=== PATIENT | female | born 1990 | race Caucasian/White ===

== ENCOUNTER 2023-11-25 19:43 | Emergency (ER) | payer OTHER, SELFPAY ==
[2023-11-25 19:48] VITALS: BP 172/122
--- NOTE | 2023-11-25 20:58 | ED.GENMED ---
History of Present Illness
<Keith Josue PA-C - Last Filed: 11/29/23 07:10>
General
Chief Complaint: Headache
Source: patient and significant other
Time Seen by Provider: 11/25/23 20:48
Travel History
Have you had any contact with someone who has COVID-19?: No
Do you have any symptoms of coronavirus? Fever > 100 degrees, chills, cough, shortness of breath, sore throat, loss of taste or smell, muscle aches, or headache?: No
History of Present Illness
History of Present Illness:
33-year-old female presenting to the emergency department for evaluation after she states that she believes she had a panic attack/questionable seizure this past Saturday show will bleed, fell to the ground and then upon awakening felt short of
breath and unwell. She states since that episode she has had paresthesia to her bilateral upper extremities, neck discomfort, left shoulder pain and states she just feels unlike herself. Patient was concern for possible seizure versus TIA versus
panic attack. She notes that she does have a history of anxiety and panic attacks that have been increasing ever since a family member's a few months ago. Patient states she is also concerned as her mother has a history of TIA around similar
age. Patient is otherwise denying any focal weakness or numbness, chest pain, shortness of breath, palpitations or any other concerns. Social history was noncontributory. Surgical history was significant for recent bariatric surgery with an
approximate 100 pound weight loss in the last few months.
Past History
<Keith Josue PA-C - Last Filed: 11/29/23 07:10>
Past History
ED Past Medical History: Asthma, GERD, Psychiatric (Depression/Anxiety) and Other (UTI, ADHD, IBS, Ulcers)
ED Past Surgical History: Tonsilectomy and Other (Bariatric surgery, sinus surgery)
Social History
Tobacco: Non-smoker
Alcohol: None
Drug: None
Personal: Single
Living: with roommate
Review of Systems
<Keith Josue PA-C - Last Filed: 11/29/23 07:10>
Review of Systems
All Other Systems: ROS reviewed and negative except as documented in HPI and ROS
Phy Exam
<Keith Josue PA-C - Last Filed: 11/29/23 07:10>
Physical Exam
Physical Exam:
GENERAL: Alert , Initially calm and cooperative, however during the history portion of the exam patient started to get very tearful and anxious and stated she no longer wanted to be here and wished to leave
Vital signs: Repeated patient's blood pressure and was 141/111
EYE: conjunctiva clear
Head: Normocephalic atraumatic
NECK: Supple,
ENT: mmm.
LUNGS: no acute respiratory distress
NEUROLOGICAL: Alert and oriented
SKIN: Warm and dry, skin intact.
MUSCULOSKELETAL: well perfused.
PSYCH: Normal and appropriate interaction However he did have a very anxious affect
Scores
<Keith Josue PA-C - Last Filed: 11/29/23 07:10>
Heart Failure Risk
Heart Failure Risk Score: Not Applicable
Heart Score for Chest Pain Patients
STEMI patient?: Not applicable
Withdrawal Assessment of Alcohol
Withdrawal Assessment Completed?: Not applicable
Course
<eKith Josue PA-C - Last Filed: 11/29/23 07:10>
Orders/Labs/Results
Orders:
Orders
11/25/23 21:15
CT Head W/o Iv Contrast Urgent
Comment:
Reason For Exam: elevated blood pressure, headache
11/25/23 21:26
Electrocardiogram (*1) Stat
Reason for Study: Other
Other Reason for Exam: neuro symptoms
EKG- Treatment ONCE
IV Insert/Care/Rem.- Treatment PRN
Test Result ONCE
Pulse Ox/cont/shift [RESP] Stat
Quantity: 1
11/25/23 21:27
CT Cervical Spine W/o Iv Contr Urgent
Comment:
Reason For Exam: Left-sided neck pain
Cardiac Monitoring- Treatment ONCE
11/25/23 21:33
Basic Metabolic Panel Urgent
HCG, Serum Qualitative Screen Urgent
TSH Reflex To Free T4 Urgent
11/25/23 21:34
Complete Blood Count/With Diff Urgent
Abnormal Lab Results
11/25/23 11/25/23
21:33 21:34
WBC 11.6 H 10^3/uL
(4.8-10.8)
Absolute Lymphs (auto) 5.2 H 10^3/uL
(1.2-3.4)
Absolute Monos (auto) 0.8 H 10^3/uL
(0.1-0.6)
Sodium 134 L mmol/L
(135-145)
11/25/23 21:34
11/25/23 21:33
Vital Signs
Initial and Last Documented VS:
Initial Vital Signs
Temp Pulse Resp BP Pulse Ox
98.2 F 90 16 172/122 100
11/25/23 19:48 11/25/23 19:48 11/25/23 19:48 11/25/23 19:48 11/25/23 19:48
Last Documented Vital Signs
Temp Pulse Resp BP Pulse Ox
98.2 F 79 12 114/91 98
11/25/23 19:48 11/26/23 00:25 11/26/23 00:25 11/26/23 00:24 11/26/23 00:25
<Ace Carias MD - Last Filed: 11/26/23 20:39>
Orders/Labs/Results
Orders:
Orders
11/25/23 21:15
CT Head W/o Iv Contrast Urgent
Comment:
Reason For Exam: elevated blood pressure, headache
11/25/23 21:26
Electrocardiogram (*1) Stat
Reason for Study: Other
Other Reason for Exam: neuro symptoms
EKG- Treatment ONCE
IV Insert/Care/Rem.- Treatment PRN
Test Result ONCE
Pulse Ox/cont/shift [RESP] Stat
Quantity: 1
11/25/23 21:27
CT Cervical Spine W/o Iv Contr Urgent
Comment:
Reason For Exam: Left-sided neck pain
Cardiac Monitoring- Treatment ONCE
11/25/23 21:33
Basic Metabolic Panel Urgent
HCG, Serum Qualitative Screen Urgent
TSH Reflex To Free T4 Urgent
11/25/23 21:34
Complete Blood Count/With Diff Urgent
Abnormal Lab Results
11/25/23 11/25/23
21:33 21:34
WBC 11.6 H 10^3/uL
(4.8-10.8)
Absolute Lymphs (auto) 5.2 H 10^3/uL
(1.2-3.4)
Absolute Monos (auto) 0.8 H 10^3/uL
(0.1-0.6)
Sodium 134 L mmol/L
(135-145)
11/25/23 21:34
11/25/23 21:33
Vital Signs
Initial and Last Documented VS:
Initial Vital Signs
Temp Pulse Resp BP Pulse Ox
98.2 F 90 16 172/122 100
11/25/23 19:48 11/25/23 19:48 11/25/23 19:48 11/25/23 19:48 11/25/23 19:48
Last Documented Vital Signs
Temp Pulse Resp BP Pulse Ox
98.2 F 79 12 114/91 98
11/25/23 19:48 11/26/23 00:25 11/26/23 00:25 11/26/23 00:24 11/26/23 00:25
<Keith Josue PA-C - Last Filed: 11/29/23 07:10>
MDM/Problems Addressed
Differential Diagnosis Includes:
Anxiety/panic disorder, hypertensive urgency/emergency, minimal concern for acute seizure/epilepsy, TIA
MDM/Problems Addressed:
33-year-old female presenting to the emergency department after she had a episode of shaking and reportedly was unresponsive for about a minute and a half, awoke but without any reported postictal phase and very anxious. She reports that she has
had these episodes more frequently over the last few months that she is attributing to increased anxiety with her job combined with a family member's recent passing. Patient ultimately stated she wished evaluated with imaging. Discussed with
patient the risk first benefit of CT imaging as well as with CT would ultimately show. I did discuss with patient that likely to show any acute a however if there were any chronic findings that this would potentially be seen with a CT. I discussed
with the patient that she may need an MRI which would be much more sensitive for CVA as well as if she is truly having seizure episodes she would likely need an EEG done as an outpatient. While discussing this with patient and prior to a full
physical exam patient got very upset tearful and stated she wished to leave the emergency department and did not want to be evaluated any further. I did offer the CT to the patient however is declining. I did veterans' counselor the patient follow-up with her
family doctor for a repeat blood pressure as hers was elevated twice in triage as well as during my exam. She is aware of return precautions to the ER but otherwise stable for discharge home.
<Keith Josue PA-C - Last Filed: 11/29/23 07:10>
*Pulse Oximetry
Patient hypoxic: no
*Critical Care Note
Total Time (30-74mins, 75-104mins- exclusive of procedures): Not Applicable
Data Reviewed
Further Testing Considered But Not Given:
CT of the head discussed with patient but patient ultimately declines.
<Ace Carias MD - Last Filed: 11/26/23 20:39>
*Radiology
Radiology exam reviewed: radiology read reviewed (Negative CTs)
*EKG
Comparison EKG: no comparison EKG present
Heart Rate: 88
Rate: normal
Rhythm: sinus
[place]: normal axis
Interval: normal interval
QRS Pattern: normal QRS
Ischemia: no ischemia
<Keith Josue PA-C - Last Filed: 11/29/23 07:10>
Comment
Comment:
prior to d/c, Dr. Carias evaluated patient and assumed care as patient requested to see a different provider
ED Attending Note
<Keith Josue PA-C - Last Filed: 11/29/23 07:10>
-
Portions of this chart may have been created with voice recognition software.� Occasional wrong word or��sound alike� substitutions may have occurred due to the inherent limitations of voice recognition software.
<Ace Carias MD - Last Filed: 11/26/23 20:39>
ED Attending Note
Patient seen and examined by attending physician: Yes
I performed the substantive portion of visit, reviewed & personally made and approve the management plan that is documented in note by myself or NEO.: Yes
ED Attending Note:
Patient was having a heated discussion with her significant other at home. She then had a questionable seizure-like activity. She states she started feeling shaky all over and went to the ground. She may have had a brief loss of consciousness.
She did not bite her tongue. She did not have incontinence. She states she feels emotionally labile which is unusual for her. She woke up and immediately wanted to use her inhaler. Currently complaining of feeling jittery shaky anxious. She may
have hit her head and has some left neck pain.
GENERAL: Alert and oriented in no apparent distress. Ambulated from the bathroom without difficulty
EYE: Orbits normal.
NECK: Supple, no thyroid palpable
ENT: Pharynx without erythema
CARDIAC: Regular rate and rhythm without any obvious murmurs.
LUNGS: Clear breath sounds,normal
ABDOMEN: Soft, without focal tenderness or distention. Elevated BMI
NEUROLOGICAL: Alert and oriented , grossly non-focal
SKIN: Warm and dry, no rash or lesion, no discoloration, skin intact.
MUSCULOSKELETAL: No edema,no deformity.Good color
PSYCH: Cooperative and pleasant but anxious and occasionally tearful
Impression: Doubt true seizure activity. Patient recalls feeling jittery had no postictal period. No tongue biting no incontinence. Blood pressure initially elevated but this was on the arm cuff. Manual pressure was reasonable. Exam is
unremarkable. Workup is stable. If CT scans are stable discharged to follow-up
2245... Patient doing well and appears well. Await CT scan.
Discharge Plan
Departure
Patient Disposition: Home (Routine Discharge)
Date of Disposition: 11/26/23
Time of Disposition: 00:17
Patient with high blood pressure during this ER visit?: Yes
Discharge Problem:
Elevated blood pressure reading, Headache, Neck pain
Instructions: BLOOD PRESSURE
Prescriptions:
No Action
alprazolam [Xanax] 0.5 MG tablet
0.5 mg PO TID PRN (Reason: ANXIETY) Qty: 7 0RF
Activity Restrictions/Additional Instructions:
Follow-up closely with your primary physician
Interventions
Interventions:
*Risk Screen - Suicide Last Done: 11/25/23 19:48
*General Assessment Last Done: 11/25/23 19:48
*Neglect/Abuse Screening Last Done: 11/25/23 19:48
ED- Fall Risk Assessment Last Done: 11/26/23 00:30
*ED COVID-19 Vaccine History Last Done: 11/25/23 19:48
*Nursing Disposition Last Done: 11/26/23 00:30
ED- Neurological Assessment Last Done: 11/25/23 21:15
Discharge Date and Time
Discharge Date/Time: 11/26/23 00:30
[2023-11-25 21:15] VITALS: BP 157/129
[2023-11-25 21:42] LABS: % Basophils 0.5 % (0-2); % Eosinophils 1.8 % (0-6); % Immature Granulocytes 0.3 % (0-0.5); % Lymphocytes 44.7 % (20.5-51.1); % Neutrophils 45.7 % (42.2-75.2); Absolute Basophils 0.1 10^3/uL (0-0.2); Absolute Eosinophils 0.2 10^3/uL (0-0.7); Absolute Lymphocytes 5.2 10^3/uL (1.2-3.4); Absolute Monocytes 0.8 10^3/uL (0.1-0.6); Absolute Neutrophils 5.3 10^3/uL (1.4-6.5); Hematocrit 42.5 % (37.0-47.0); Hemoglobin 14.7 g/dL (12.0-16.0); Mean Corp Hgb Conc. 34.6 g/dL (33.0-37.0); Mean Corpuscular Hgb 29.1 pg (27.0-31.0); Mean Platelet Volume 9.7 fL (7.4-10.4); Nucleated Red Blood Cells % 0 %; Platelet Count 338 10^3/uL (130-400); Red Blood Cell Count 5.06 10^6/uL (4.20-5.40); Red Cell Dist. Width 12.6 % (11.5-14.5); White Blood Cell Count 11.6 10^3/uL (4.8-10.8)
[2023-11-25 22:01] LABS: HCG, Serum Qualitative Screen Negative
[2023-11-25 22:06] VITALS: BP 130/96
[2023-11-25 22:06] LABS: Blood Urea Nitrogen 14 mg/dl (7-17); Carbon Dioxide 23 mmol/L (22-30); Chloride 102 mmol/L (98-107); Glucose 88 mg/dl (70-99); Potassium 4.7 mmol/L (3.5-5.1); Sodium 134 mmol/L (135-145); eGFR > 60.00
[2023-11-25 22:36] LABS: TSH Reflex To Free T4 2.01 uIU/ml (0.47-4.68)
[2023-11-25 23:00] VITALS: BP 131/87
[2023-11-26 00:24] VITALS: BP 114/91
== END 2023-11-26 00:30 | disposition home or self-care (01) ==
LOC: EMR 19:43
PROVIDERS: EMERGENCY PHYSICIAN Emergency Medicine; FAMILY PHYSICIAN Family Medicine
DX: R51.9 Headache, unspecified (principal); M54.2 Cervicalgia; R03.0 Elevated blood-pressure reading, without diagnosis of hypertension
CPT/HCPCS: 99285; 70450; 72125; 80048; 84443; 84703; 85025; 93005

== ENCOUNTER → 2023-12-26 19:01 | Outpatient (REF) | payer OTHER, SELFPAY | LOC: MRI 19:01 | PROVIDERS: ATTENDING PHYSICIAN Family Medicine | DX: H53.9 Unspecified visual disturbance (principal); R51.9 Headache, unspecified | CPT/HCPCS: 70553; A9575 ==